=== PATIENT | male | born 1960 | race Caucasian/White ===

== ENCOUNTER 2019-08-20 08:06 | Outpatient (CLI) | payer OTHER, SELFPAY ==
--- NOTE | 2019-08-20 08:41 | ECG_ITS ---
Measurements Intervals [place] Rate: 59 P: 64 DE: 196 QRS: 21 QRSD: 93 T: 26 QT: 397 QTc: 396 Interpretive Statements SINUS BRADYCARDIA DELAYED PRECORDIAL R/S TRANSITION BASELINE ARTIFACT- I, II, AVR, AVL, AVF, V1-V6 BORDERLINE ECG Electronically Signed On 08-20-2019 8:54:59 [employer] by Aftab Lauren D.O.
[2019-08-20 08:58] LABS: Basophils Absolute Auto 0.1 K/mm3 (0.0-0.1); Basophils Percent Auto 1.4 % (0.2-1.2); Eosinophils Absolute Auto 0.5 K/mm3 (0-0.3); Eosinophils Percent Auto 5.3 % (0-4.4); Hematocrit 44.4 % (42.0-52.0); Hemoglobin 14.8 g/dL (14.0-18.0); Immature Granulocyte Absolute 0.09 K/mm3 (0.00-0.031); Immature Granulocyte Percent A 1.1 % (0-0.5); Lymphocytes Absolute Auto 2.09 K/mm3 (0.9-3.2); Lymphocytes Percent Auto 24.8 % (18.3-44.2); Mean Corpuscular HGB Conc 33.3 g/dl (32-36); Mean Corpuscular Hemoglobin 29.7 pg (26-34); Mean Platelet Volume 9.9 fl (7.4-10.4); Monocytes Absolute Auto 0.8 K/mm3 (0.1-0.6); Monocytes Percent Auto 8.9 % (2.6-8.5); Neutrophils Absolute Auto 4.9 K/mm3 (1.3-6.7); Neutrophils Percent Auto 58.5 % (45.5-73.1); Platelet Count Result 230 k/mm3 (150-375); Red Blood Count 4.99 M/mm3 (4.6-6.20); Red Cell Distribution Width 12.7 % (11.5-14.5); White Blood Count 8.4 K/mm3 (4.5-10.0)
== END 2019-08-20 08:07 | disposition home or self-care (01) ==
PROVIDERS: Visit Provider Orthopaedic Surgery
DX: M17.12 Unilateral primary osteoarthritis, left knee (principal); Z87.891 Personal history of nicotine dependence; R00.1 Bradycardia, unspecified
CPT/HCPCS: 36415; 85025; 87081; 93005

== ENCOUNTER 2019-09-14 00:56 | Day surgery (SDC) | payer OTHER, SELFPAY ==
[2019-08-20 08:45] VITALS: BP 154/87; PULSE 65; RESP 16; TEMP 36.7; O2SAT 98; BMI 33.2
[2019-09-14] VITALS (7 sets, daily range): BP systolic 135–153; BP diastolic 81–100; PULSE 62–93; RESP 12–18; TEMP 36.3–36.4; O2SAT 93–99
--- NOTE | ~2019-09-14 | XR_ITS ---
XR knee LT 2V DATE: 09/14/2019 13:19 INDICATION: Left partial knee replacement TECHNIQUE: Postoperative portable AP and lateral views COMPARISON: 08/23/2019 left knee FINDINGS: There is subcutaneous emphysema as expected immediately postoperatively. There is medial joint replacement. No fracture or dislocation is evident. There is moderate osteoarthritic change at the patellofemoral joint. IMPRESSION: Status post medial left knee joint replacement Reviewed, dictated and finalized at location B.
[2019-09-14] MEDS: TRANEXAMIC ACID 1,000MG/ISO100 1,000 MG/100 ML BAG 200 MG IVPB (09:00)
[2019-09-14] MEDS: LACTATED RINGERS 1,000 ML 30 ML IV CONT ×2 (09:45→13:00)
--- NOTE | 2019-09-14 10:14 | WPDANESEPPF ---
Anes - Initial Pre Proc Eval Procedure: Operation Date: 09/14/19 10:00 Proposed Procedures p Left Partial Knee Replacement - Raman Guy MD Date/Time: 09/14/19 10:14 Surgeon: Raman Guy MD Pre Op Diagnosis: Left Knee Osteoarthritis Patient Data Age: 59 Gender: M Height: 5 ft 10 in Weight: 103.4 kg Last Vital Signs Temp 36.3 C L 09/14/19 08:40 Pulse 62 09/14/19 08:40 Resp 18 09/14/19 08:40 BP 153/98 H 09/14/19 08:40 Pulse Ox 99 09/14/19 08:40 Allergies Allergy/AdvReac Type Severity Reaction Status Date / Time No Known Allergies Allergy Verified 09/14/19 08:46 Home Medications Medication Instructions Recorded Confirmed Type cholecalciferol (vitamin D3) 4,000 unit PO DAILY 08/20/19 09/14/19 History [Vitamin D3] ibuprofen [Advil] 400 mg PO DAILY 08/20/19 09/14/19 History multivitamin [Daily Multiple] 1 tablet PO DAILY 08/20/19 09/14/19 History vitamin B complex [Super B-50 1 cap PO DAILY 08/20/19 09/14/19 History Complex] Patient hx anesthesia problems: none Family hx anesthesia problems: none PMFSH Past Medical History Medical History Primary osteoarthritis of left knee Family History Family History Other Family history of arthritis Family history of malignant neoplasm Social History Social History Smoking status: Never smoker Alcohol intake: current Gender identity (if verbalized by the patient): Male Anes - Eval Final PreProcedure Day of Procedure 09/14/19 10:14 Patient weight: obese Heart: regular rate and rhythm Lungs: clear to auscultation Airway: Mallampati scale class II Neurological: alert and oriented Last oral intake: >/= 8 hours ASA classification: III Emergent: no Anesthetic plan: proceed Anesthesia type and monitoring: general LMA and standard monitoring Informed Consent: The patient's anesthetic plan and its attendant risks and benefits were discussed with the patient/family/POA. Questions were solicited and answers provided to the satisfaction of the patient/family/POA.
--- NOTE | 2019-09-14 10:42 | WPDHPUPDATE1 ---
History and Physical Update Update Date/Time: 09/14/19 10:42 History and Physical has been reviewed, including an updated exam of the patient. There are NO changes in the patient's condition. Risks, benefits, and alternatives have been discussed and questions answered. Patient agrees to proceed with procedure.
[2019-09-14] MEDS: ceFAZolin 2 GM/D5W 50 ML 2 GM/50 ML BAG IVPB (10:50)
--- NOTE | 2019-09-14 10:54 | P.OP_ITS ---
Procedure Note - Detailed Date of procedure: 09/14/19 Pre-op diagnosis: Left Knee Osteoarthritis Post-op diagnosis: same Procedure performed: Partial knee arthroplasty, medial compartment. Implants: Triathlon PKR X3 system tibial insert size #4, 8 mm thickness, femoral component size 4. Tibial base tibial base plate size 4. Anesthesia: GETA and regional (subsartorial block.) Surgeon: Raman Guy MD Estimated blood loss (mL): 50 Drains: No Complications: None Condition: stable Disposition: same day Findings: Operative details: The patient was given a general anesthetic. Preoperative antibiotics were given. The knee was prepped and draped in the usual sterile fashion. A longitudinal incision was created along the medial aspect of the patellar tendon. A minimally invasive optimized mid vastus approach was completed. No medial release was taken. The external alignment guide was used to cut the tibia with anatomic posterior slope. A 4 millimeter resection was taken. The spacer block technique was utilized to measure flexion and extension gaps after the osteophytes were removed. The difference was used to calculate the distal resection. The distal cutting block was utilized to cut the distal femur. The AP and chamfer block was utilized for this last cuts. The femur and tibia were sized. Range of motion and gap balancing was assessed. This was tested with the 1.5 millimeter spacer. The bony surfaces were cleaned with lavaged. Lug holes were drilled. The real components were cemented into position. Excess cement was carefully removed. The tourniquet was released. Meticulous hemostasis was maintained. The wound was closed with interrupted 1 Vicryl suture followed by a running 0 Quill suture and 2-0 Quill suture. Steri- Strips are placed in the skin the patient was extubated and brought to recovery room in stable condition. There were no complications.
[2019-09-14] MEDS: GENTAMICIN BONE CEMENT REFOBACIN 1 EACH TOPICAL (11:15)
== END 2019-09-14 15:00 | disposition home or self-care (01) ==
PROVIDERS: Visit Provider Orthopaedic Surgery
PROC: (CPT 27446; principal; 2019-09-14 10:00)
DX: M17.12 Unilateral primary osteoarthritis, left knee (principal); E66.9 Obesity, unspecified; Z68.32 Body mass index [BMI] 32.0-32.9, adult
CPT/HCPCS: 27446; 73560; C1713; C1776; J0131; J0171; J0690; J1100; J1170; J1885; J2250; J2270; J2405; J2704; J2795; J3010; J7120

== ENCOUNTER 2019-11-10 12:30 | Outpatient (RCR) | payer OTHER, SELFPAY ==
--- NOTE | 2019-09-22 16:09 | PTOPEVAL ---
Thank you for referring this patient to [facility]. Please review, sign, date and return this plan of care DANISHA. Pt referred to therapy following partial knee replacement. He demonstrates limitations with LE range, strength, and functional mobility. He requires additional skilled therapy to address impairments and allow pt to return to prior level of function. Recommend additional PT 2-3x/wk x 4 wk. I agree with and certify that the following plan of care is medically necessary. Referring Physician Date Attending Provider: Raman Guy MD Referring Provider: *PT Outpatient Evaluation Start: 09/22/19 14:47 Freq: Status: Active Protocol: Document 09/22/19 14:55 CAP (Rec: 09/22/19 15:27 CAP [email or web address]) Therapy Assessment Status Assessment Status Assessment Status Evaluation Outpatient Past Medical History Past Medical History Source of Past Medical History Patient,Recalled from Previous Visit, Confirmed with Patient /Family Neurological History Hx Neurological Disorders No Significant History Cardiovascular History Hx Cardiac Disorders No Significant History Respiratory History Hx Respiratory Disorders No Significant History Gastrointestinal History Hx Gastrointestinal Disorders No Significant History Genitourinary History Hx Genitourinary Disorders No Significant History Musculoskeletal History Hx Arthritis Yes: LT KNEE OA Hx Fractures Yes: LT WRIST FX Hx Joint Replacement Yes: RT PARTIAL KNEE 02/2019, left partial knee 09/14/19 Hematological History Hx Hematological Disorders No Significant History Endocrine History Hx Endocrine Disorders No Significant History HEENT History Hx Eye Surgery Yes: BILAT.RETINOPATHY LASERED Hx Other HEENT Disorders Yes: READING GLASSES Integumentary History Hx Shingles Yes Reproductive History Hx Reproductive Disorders No Significant History Psychosocial History Hx Psychiatric Disorders No Significant History Pain History Has Past Pain Affected Your Daily Life Yes Anesthesia History Hx Anesthesia Reactions No Significant History Evaluation Information Problem Diagnosis OA left knee, s/p partial TKR Onset 09/14/19 Cause OA Subjective Information Pt referred to therapy Query Text:As Reported By Patient/ following partial TKR. He was Family DC from the hospital 09/14/19. He progressed from the ww to cane today. He reports decreased ability to move the left knee, getting off surfaces, walking, donning/
--- NOTE | 2019-10-20 10:45 | PTOPEVAL ---
Thank you for referring Toribio Teauge to [facility]. Please review, sign, date and return this plan of care DANISHA. Pt has received 9 therapy visits to address LE impairments related to partial TKR. He is progressing towards his therapy goals with improved range, strength and functional mobility. Recommend additional PT 1-2x/wk x 4 wk to achieve therapy goals. I agree with and certify that the following plan of care is medically necessary. 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 He is required to ambulate without a device and perform squating motions, and be able to lift up to 50#. Pt referred to therapy following partial TKR. He was DC from the hospital 09/14/19. Subjective Information He reports his knee is feeling Query Text:As Reported By Patient/ better. Cont to difficutly Family with end range flex with increased tightness, difficulty with steps. He has increased knee pain with transitioning from flex to ext motion. No difficulty with walking on level surfaces. Cont to have difficulty with donning shoes, no problems with socks. He is performing his HEP 2x/ day. He is using the cane for community mobility. Next MD appt 12/13/19. Pain Assessment Timing of Pain Assessment Timing of Pain Assessment Re-assessment Pain Scale Pain Scale Used Numeric (1 - 10) Self Report Pain Assessment Left Knee(s) Reported Pain Level 1 Pain Description Aching,Pressure,Sharp,Tender on Palpation,Tightness Pain Frequency Continuous Lowest Pain Intensity 1 Greatest Pain Intensity 4 Pain Aggravating Factors ADL's,Exercise/Activity,Stair
--- NOTE | 2019-11-10 13:19 | PTOPEVAL ---
Thank you for referring Toribio Teague to [facility]. Please review, sign, date and return this plan of care DANISHA. Pt has been seen for 15 therapy visits from 09/21-11/10/19 to address impairments related to his knee surgery. He demonstrates improvement with his LE strength and knee range, improved performance with functional mobility and community mobility. He is indep with a HEP. HE has achieved his therapy goals. DC skilled therapy at this time. I agree with and certify that the following plan of care is medically necessary. 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 He is required to ambulate without a device and perform squating motions, and be able to lift up to 50#. Pt referred to therapy following partial TKR. He was DC from the hospital 09/14/19. Subjective Information He denies problems with knee Query Text:As Reported By Patient/ motion, donning shoes/socks. Family He has slight problems with steps and sit<>stand from chair without UE support. No longer using the cane at home or community. Denies any problems with his HEP. Pain Assessment Timing of Pain Assessment Timing of Pain Assessment Re-assessment Pain Scale Pain Scale Used Numeric (1 - 10) Self Report Pain Assessment Left Knee(s) Reported Pain Level 0 Lowest Pain Intensity 0 Greatest Pain Intensity 0 Pain Score Pain Score 0: Self Report Lower Extremity Range of Motion Knee Range of Motion Left Knee Flexion Range of Motion - Active 118 Knee Extension Range of Motion - Active -5 Query Text: Knee Range of Motion Limitations Edema,Soft Tissue Restriction Lower Extremity Muscle Strength Testing Hip Strength Left Hip Flexion Strength 5 Normal Hip Extension Strength 5 Normal Hip Abduction Strength 4 Good Knee Strength Left Knee Flexion Strength 5 Normal Knee Extension Strength 5 Normal Palpation Assessment Palpation Palpation no ten
== END 2019-11-10 14:01 | disposition home or self-care (01) ==
LOC: ANHPT 12:30
PROVIDERS: Visit Provider Orthopaedic Surgery
DX: M17.12 Unilateral primary osteoarthritis, left knee (principal)
CPT/HCPCS: 97014; 97110; 97140; 97161; 97530; G0283

== ENCOUNTER 2020-05-08 12:59 | Outpatient (CLI) | payer OTHER, SELFPAY ==
[2020-05-08 14:01] LABS: Basophils Absolute Auto 0.1 K/mm3 (0.0-0.1); Basophils Percent Auto 1.5 % (0.2-1.2); Eosinophils Absolute Auto 0.4 K/mm3 (0-0.3); Eosinophils Percent Auto 4.4 % (0-4.4); Hematocrit 44.9 % (42.0-52.0); Hemoglobin 15.2 g/dL (14.0-18.0); Immature Granulocyte Absolute 0.09 K/mm3 (0.00-0.031); Immature Granulocyte Percent A 1.1 % (0-0.5); Lymphocytes Absolute Auto 2.81 K/mm3 (0.9-3.2); Lymphocytes Percent Auto 34.6 % (18.3-44.2); Mean Corpuscular HGB Conc 33.9 g/dl (32-36); Mean Corpuscular Hemoglobin 30.1 pg (26-34); Mean Corpuscular Volume 88.9 fl (80-100); Mean Platelet Volume 9.3 fl (7.4-10.4); Monocytes Absolute Auto 0.9 K/mm3 (0.1-0.6); Monocytes Percent Auto 11.6 % (2.6-8.5); Neutrophils Absolute Auto 3.8 K/mm3 (1.3-6.7); Neutrophils Percent Auto 46.8 % (45.5-73.1); Platelet Count Result 242 k/mm3 (150-375); Red Blood Count 5.05 M/mm3 (4.6-6.20); Red Cell Distribution Width 12.6 % (11.5-14.5); White Blood Count 8.1 K/mm3 (4.5-10.0)
[2020-05-08 14:11] LABS: Hemoglobin A1C 5.4 % (<5.7); Urine Cotinine NEGATIVE
[2020-05-08 14:13] LABS: Albumin Level 4.5 g/dL (3.5-5.1); Estimated Glomerular Filt Rate > 60; Glucose 96 mg/dL (75-110)
== END 2020-05-08 13:00 | disposition home or self-care (01) ==
PROVIDERS: Visit Provider Orthopaedic Surgery
DX: M17.12 Unilateral primary osteoarthritis, left knee (principal); Z01.818 Encounter for other preprocedural examination
CPT/HCPCS: 80307; 82040; 82565; 82947; 83036; 85025; 87081

== ENCOUNTER 2021-03-10 10:19 | Emergency (ER) | payer OTHER, SELFPAY ==
--- NOTE | ~2021-03-10 | XR_ITS ---
EXAMINATION: XR elbow RT min 3V EXAM DATE: 03/10/2021 11:16 INDICATION: Medial Side Pain Cant Straighten Unknown Injury right elbow. TECHNIQUE: Right elbow frontal, lateral with flexion, and oblique projections obtained and reviewed. There is no prior study for comparison. FINDINGS: Right elbow anterior humeral line intact. There is large joint effusion, nonspecific joint fluid. This is most commonly sterile effusion. Possible underlying etiologies include reactive from arthritis, overuse, or trauma. Hemarthrosis and septic effusion are not radiographically excludable . Please clinically correlate. There are no acute fractures identified. There is mild primary osteoa rthritis. IMPRESSION: 1. Large nonspecific right elbow joint effusion. 2. Mild osteoarthritis. Reviewed, dictated and finalized at location A.
[2021-03-10 11:00] VITALS: BP 168/89; PULSE 63; RESP 20; TEMP 36.8; O2SAT 99
--- NOTE | 2021-03-10 12:21 | ED.GENADULT ---
HPI - General Adult General Chief complaint: Extremity Injury, Upper Stated complaint: elbow injury Time Seen by Provider: 03/10/21 11:07 Source: patient Mode of arrival: ambulatory Limitations: no limitations History of Present Illness HPI narrative: Patient presents with chief complaint of pain and decreased range of motion to the right elbow that began yesterday. Patient states prior to his symptoms he had been working on a car alignment. He denies anything falling on the elbow or any popping sensations. Patient denies any other injuries. Related Data Home Medications Medication Instructions Recorded Confirmed ibuprofen [Advil] 400 mg PO DAILY 08/20/19 09/11/20 multivitamin [Daily Multiple] 1 tablet PO DAILY 08/20/19 09/11/20 vitamin B complex [Super B-50 1 cap PO DAILY 08/20/19 09/11/20 Complex] Allergies Allergy/AdvReac Type Severity Reaction Status Date / Time No Known Allergies Allergy Verified 03/10/21 11:23 Review of Systems Review of Systems: CONSTITUTIONAL: Denies fever, chills, or sweats. EYES: Denies visual changes, redness, or discharge. ENT: Denies rhinorrhea, congestion, sore throat, or otalgia. CARDIOVASCULAR: Denies chest pain, palpitations, or edema. RESPIRATORY: Denies cough or dyspnea. GASTROINTESTINAL: Denies abdominal pain, nausea, vomiting, or diarrhea. GENITOURINARY: Denies dysuria or hematuria. SKIN: Denies rash or itching. MUSCULOSKELETAL: Right elbow pain denies back pain or myalgia. NEUROLOGIC: Denies headache, numbness, dizziness, or weakness. PSYCHIATRIC: Denies anxiety or depression. FOR[facility] Past Medical History Medical History (Updated 03/10/21 @ 11:49 by Amy Mendez PA-C) Primary osteoarthritis of left knee Surgical History Surgical History Status post left partial knee replacement (~09/14/19) Status post right partial knee replacement (~03/05/19) Family History Family History Other Family history of arthritis Family history of malignant neoplasm Social History Social History Smoking packs per day: 0.75 Smoking cigarettes per day: 15.0 Years smoked: 22 Smoking pack-years: 16.50 Smoking status: Former smoker Tobacco type: cigarettes Second hand tobacco smoke exposure: No Smoking end date: 06/30/05 Additional smoking assessment comments: DENIES ANY FORM OF TOBACCO/NICOTINE USE Alcohol intake: current Drinks per week: 6 Gender identity (if verbalized by the patient): Male Spiritual care concerns: No Exam Narrative: GENERAL: Well-appearing, well-nourished, and in no acute distress. HEAD: Normocephalic, atraumatic. EYES: PERRLA and EOMI. NECK: Supple. No adenopathy or masses. CHEST: Clear to auscultation. No respiratory distress. No wheezes rales or rhonchi HEART: Regular rate and rhythm. No murmur heard. Normal peripheral pulses. EXTREMITIES: Swelling noted to the right elbow without increased tenderness or erythema. There is decreased flexion and extension due to pain feelings of limits. Sensation and range of motion intact proximally and distally. SKIN: Warm, dry, no rash. NEURO: No focal deficits. Alert and oriented x3. PSYCH: Normal mood and affect. Course Vital Signs Vital signs: Vital Signs Temperature 98.3 F 03/10/21 11:00 Pulse Rate 63 03/10/21 11:00 Respiratory Rate 20 03/10/21 11:00 Blood Pressure 168/89 H 03/10/21 11:00 Pulse Oximetry 99 03/10/21 11:00 Temperature 98.3 F 03/10/21 11:00 Pulse Rate 59 L 03/10/21 12:45 Respiratory Rate 16 03/10/21 12:45 Blood Pressure 154/97 H 03/10/21 12:45 Pulse Oximetry 97 03/10/21 12:45 Medical Decision Making MDM Narrative Medical decision making narrative: Discussed with patient plan of care and the need to follow-up with primary care or bi specialist i
[2021-03-10 12:45] VITALS: BP 154/97; PULSE 59; RESP 16; O2SAT 97
== END 2021-03-10 12:46 | disposition home or self-care (01) ==
PROVIDERS: Emergency Provider Emergency Medicine
DX: M25.421 Effusion, right elbow (principal); M17.12 Unilateral primary osteoarthritis, left knee; M19.021 Primary osteoarthritis, right elbow; Z87.891 Personal history of nicotine dependence
CPT/HCPCS: 73080; 99283

== ENCOUNTER 2021-05-01 08:00 | Outpatient (RCR) | payer OTHER, SELFPAY ==
--- NOTE | 2021-04-10 08:41 | OTOPEVAL ---
OCCUPATIONAL THERAPY INITIAL EVALUATION REPORT 04/10/21 Toribio is a 60 year-old, right handed male who sustained an elbow sprain on 03/09/21. He also has developed a trigger finger in the right middle finger since this injury. OT evaluation this date shows some residual pain with end-range elbow flexion and extension with resistance. No pain with forearm, wrist, hand motions. It is recommended that the patient complete active ROM and gentle, progressive strengthening to the elbow in a pain-free range to facilitate optimal healing and functional use of the right UE. Today he was instructed in ROM and strengthening HEP, was issued a splint for the trigger finger, and educated on body mechanics with ADLs and household tasks while he is still healing from the sprain. Continued OT indicated for progressive strengthening, modalities for pain/inflammation, and exercises to promote return to work. Thank you for referring Toribio Teague to [facility].? The patient is scheduled to be seen for therapy? 1x/week for 3 weeks. Please review, sign, date and return this plan of care DANISHA. I agree with and certify that the following plan of care is medically necessary. Referring Physician Date Referring Provider: Raman Guy MD *OT Outpatient Evaluation Start: 04/10/21 07:19 Outpatient Past Medical History Neurological History Hx Neurological Disorders No Significant History Cardiovascular History Hx Other Cardiac Disorders Yes: WALKS ONE MILE DAILY Respiratory History Hx Respiratory Disorders No Significant History Gastrointestinal History Hx Gastrointestinal Disorders No Significant History Genitourinary History Hx Genitourinary Disorders No Significant History Musculoskeletal History Hx Arthritis Yes: KNEES AND FINGERS Hx Fractures Yes: LT WRIST FX Hx Joint Replacement Yes: RT PARTIAL KNEE 02/2019, left partial knee 09/14/19 Hx Other Musculoskeletal Disorders Yes: FAILURE OF PARTIAL LT KNEE Hematological History Hx Hematological Disorders No Significant History Endocrine History Hx Endocrine Disorders No Significant History HEENT History Hx Eye Surgery Yes: BILAT.RETINOPATHY LASERED Hx Other HEENT Disorders Yes: READING GLASSES Integumentary History Hx Shingles Yes Reproductive History Hx Reproductive Disorders No Significant History Psychosocial History Hx Psychiatric Disorders No Significant History Pain History Has Past Pain Affected Your Daily Life Yes Anesthesia History Hx Anesthesia Reactions No Significant History Evaluation Information Problem Diagnosis Right elbow sprain, right hand trigger finger Onset 03/09/21 Subjective Information 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 X-rays were negative for acute fractures.
--- NOTE | 2021-05-01 08:32 | OTOPEVAL ---
OCCUPATIONAL THERAPY RE-EVALUATION AND DISCHARGE NOTE 05/01/21 Toribio presents today for OT re-evaluation after 3 sessions. He has progressed his strengthening HEP to blue theraband and 5# dumbbells. He no longer has pain with ADLs, ROM, or exercise. Valgus stress testing today was all negative. Patient is off work for another 4 weeks and he plans to continue to strengthen the right elbow, wrist, and hand. No further skilled OT is indicated at this time. D/C today with patient independent with all materials and goals met. [ End ] Thank you for referring Toribio Teague to [facility]. Please review, sign, date and return this D/C Note DANISHA. I agree with and certify that the following plan of care is medically necessary. 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 Today he is 7.5 weeks out from the injury. He did receive an injection to the elbow last week. He has been resting the elbow and completing strengthening to the elbow, wrist, and hand. He states that he has had no pain in the last week with use. He states he is now doing his ADLs and household tasks without any pain. No issues with carrying groceries. He has not attempted to complete anything too forceful, such as using a hammer, just yet. Regarding the trigger finger, he has not worn his splint in 1 week and has had no triggering or pain in the hand. Quickdash: 0% Pain Assessment Timing of Pain Assessment Timing of Pain Assessment Re-assessment Pain Scale Pain Scale Used Numeric (1 - 10) Self Report Pain Assessment Right Hand(s) Reported Pain Level 0 Lowest Pain Intensity 0 Greatest Pain Intensity 0 Right Elbow(s) Reported Pain Level 0 Lowest Pain Intensity 0 Greatest Pain Intensity 0 Upper Extremity Range of Motion Scapular/ Shoulder Range of Motion Bilateral Reason Not Measured WNL/Left,WNL/Right Elbow/Forearm Range of Motion Left Elbow Flexion - Active
== END 2021-05-01 14:59 | disposition home or self-care (01) ==
LOC: ANHOT 08:00
PROVIDERS: Visit Provider Orthopaedic Surgery
DX: M19.029 Primary osteoarthritis, unspecified elbow (principal); S53.401D Unspecified sprain of right elbow, subsequent encounter
CPT/HCPCS: 97035; 97110; 97165; L3919